=== PATIENT | female | born 1960 | race Caucasian/White ===

== ENCOUNTER 2017-03-13 07:07 | Day surgery (SDC) | payer BC, MEDICARE ==
[~2017-03-13 07:07] MED LIST: ACETAMINOPHEN 1,000 MG/100 ML BTL IV ONE; CLINDAMYCIN 600MG/50ML PREMIX 600 MG/50 ML BAG IVPB ONE
[2017-03-13 07:21] LABS: BASO % 0.6 % (0-6); EOS % 2.4 % (0-6); GRAN % 58.7 % (47-80); HEMATOCRIT 35.3 % (35.0-47.0); HEMOGLOBIN 11.4 gm/dl (11.6-16.0); LYMPH % 31.4 % (16-45); MEAN CELL VOLUME 80.8 fl (81-97); MEAN CORPUSCULAR HGB CONC 32.3 g/dl (32-36); MEAN PLATELET VOLUME 9.3 fl (7.4-10.4); MONO % 6.9 % (0-9); PLATELET COUNT 377 K/uL (130-400); RED BLOOD COUNT 4.37 M/uL (3.80-5.40); RED CELL DISTRIBUTION WIDTH 16.3 % (11.5-14.5); WHITE BLOOD COUNT W/O DIFF 7.8 K/uL (4.2-12.2)
[2017-03-13] MEDS ORDERED: HYDROCODONE/APAP 5/325MG TABLET PO ONE (14:25)
[2017-03-13] MEDS ORDERED: HYDROMORPHONE HCL 2 MG/ML VIAL IV ONE ×2 (14:25→14:31)
[2017-03-13] MEDS ORDERED: PROPOFOL 10 MG/ML VIAL IV ONE (14:31)
[2017-03-13] MEDS ORDERED: SUFENTANIL CITRATE 50 MCG/ML AMPUL IV ONE (14:31)
[2017-03-13] MEDS ORDERED: MIDAZOLAM HCL 2MG/2ML VIAL IV ONE (14:31)
[2017-03-13] MEDS ORDERED: SEVOFLURANE 250 ML INH ONE (14:31)
[2017-03-13] MEDS ORDERED: KETOROLAC 30 MG/ML VIAL IVP ONE (14:31)
[2017-03-13] MEDS ORDERED: LIDOCAINE 2% MDV (20MG/ML) 20ML VIAL IV ONE (14:31)
--- NOTE | 2017-03-18 14:10 | Operative Note ---
DATE OF SURGERY: 03/13/2017 Surgeon: Alex Zuñiga DO PREOPERATIVE DIAGNOSIS: Carpometacarpal osteoarthritis of the left wrist. POSTOPERATIVE DIAGNOSIS: Carpometacarpal osteoarthritis of the left wrist. OPERATION: Carpometacarpal hemiarthroplasty of the left wrist. DESCRIPTION OF PROCEDURE: This 56-year-old female was taken to the operating room, placed in the supine position on the operating room table where general anesthesia was induced by the department of anesthesia. The left upper extremity was then elevated, prepped with Hibiclens and draped in the usual sterile fashion. It was exsanguinated and the tourniquet inflated to 250 mmHg. An incision was made on the radial aspect of the wrist extending down over the 1st metacarpal on its dorsal surface. Dissection was carried down through the skin and subcutaneous tissue. Hemostasis obtained with the electrocautery. Branches to the radial nerve were protected. The extensor brevis easily identified and an incision made ulnar to that. Dissection was carried down through the capsule of the CMC joint, and subperiosteal elevation of the proximal end of the metacarpal was performed to expose this a distance about 270 degrees around the metacarpal. This gave us excellent exposure to the CMC joint. Full-thickness articular cartilage loss was noted. We made a small hole in the articular surface, which was going to be the entry point for the prosthesis. This position was checked with the intensifier and found to be satisfactory. Subsequently, the sizing jig was affixed and a size small was seen to be the appropriate size. We used the guide to reference the cut off of the proximal first metacarpal and once the appropriate position and alignment of the cutting guide had been assured, based on the guide the appropriate cut was made and the wafer of bone was removed. We then had excellent exposure to the trapezium and a K-wire was then placed in the center of the bone and its position again checked with the image intensifier. Subsequently, we reamed this to the [place] on the small reamer and this was also seen to be satisfactory. Osteophytes mostly on the ulnar side of the trapezium were removed with the saw. We then used the size 10 broach and impacted that into place. Again, its position checked with the image intensifier and found to be satisfactory. However, it was too small and subsequently a size [address]. This gave us a very firm fit and the trial was subsequently inserted. Trial reduction was accomplished. The patient had good range of motion with good stability and subsequently the trial component was removed. The wound copiously irrigated with lactated Ringer's solution. A size 20 small [place] NuGrip was impacted into place. The prosthesis was reduced and again taken through range of motion. The image intensifier was again used to confirm final position and alignment of the prosthesis. The capsulotomy was then closed with #0 Vicryl and the subcutaneous tissue closed with 4-0 Vicryl. The skin was closed with running 4-0 nylon suture. Sterile dressings were applied with the thumb in an adducted position. Plaster splint immobilization was applied. The patient was then taken to the recovery room in satisfactory condition. GROSS PATHOLOGY: This patient demonstrated severe osteoarthritis with some subluxation of the carpometacarpal joint of the left thumb but full-thickness articular cartilage loss was noted. The final position and alignment of the prosthesis was seen to be satisfactory. Final component inserted was an [place] NuGrip size 20 small component. [facility]ily
== END 2017-03-13 11:50 | disposition home or self-care (01) ==
LOC: SUR 07:07
PROVIDERS: ATTEND Orthopaedic Surgery
DX: M18.12 Unilateral primary osteoarthritis of first carpometacarpal joint, left hand (principal); M79.7 Fibromyalgia; M06.9 Rheumatoid arthritis, unspecified; E03.9 Hypothyroidism, unspecified; F41.8 Other specified anxiety disorders
CPT/HCPCS: 25447; 01830; 85025; 76000; J1885; J1170